=== PATIENT | female | born 1950 | race Caucasian/White ===

== ENCOUNTER → 2016-08-18 | Outpatient (CLI) | payer OTHER ==
[~2016-08-18] MED LIST: ACETAMINOPHEN PO; ALPRAZOLAM PO; ARIXTRA2.5 MG/0.1 SQ; ASPIRIN PO; ATENOLOL PO; ATENOLOL50 MG PO; ATORVASTATIN CA20 MG PO; BENICAR PO; BENICAR20 MG PO; BLACK COHOSH540 MG PO; CAPOZIDE PO; CELEXA20 M1 PO; CLARITIN10 M3 PO; DISCONTINUED MED; FEMHRT 1/5 TABL1 TAB PO; FLOVENT7.9 GM INH; HCTZ PO; HYDROCHLOROTHIA25 MG PO; HYDROGESIC 5/501 CAP PO; KCL PO; LIPITOR20 MG PO; LO-DOSE ASPIRIN81 M1 PO; LORTAB 7.5-5001 TAB PO; METFORMIN HCL500 M4 PO; MONTELUKAST SOD10 MG PO; NAPROSYN500 MG PO; NEURONTIN300 MG PO; NEXIUM PO; OMEPRAZOLE20 M2 PO; OMEPRAZOLE40 M1 PO; PANTOPRAZOLE SO40 MG PO; PATIENT'S PHARMACY; PLAVIX PO; POTASSIUM CHLO10 MEQ PO; PRAVACHOL PO; PRILOSEC20 M1 PO; PRINIVIL10 MG PO; TENORETIC 100 T1 TAB PO; TOLECTIN PO; TOLMETIN SODIU400 MG PO; ULTRAM PO; VIT B-12 PO; VITAMIN E200 UNIT PO; [UNRECOGNIZED DRUG - OTHER]; [UNRECOGNIZED DRUG - OTHER] INJ
--- NOTE | ~2016-08-18 | CT2 ---
[facility] A Service of [facility] RADIOLOGY TEXT RESULTS PATIENT: MJ WORKMAN [facility] 54 UN[facility] #: [id number] AGE: [address]: Ismael Hill MD SEX: F ORDER DR: [id number] [facility]. [place], [place] [address] [id number] O MR#: [id number] Acc #: [id number] NAME: MJ WORKMAN. : 1950 SEX: F STUDY DATE/TIME: 08/18/2016 8:58 UNIT: [facility] ROOM: STUDY DESCRIPTION: CT Abd and Pelv W Cont Attending Physician: Ismael Hill M.D. Referring Physician: Ismael Hill M.D. Ordering Physician: Ismael Hill M.D. Primary Care Physician: Marcel Hilton Jr., M.D. MEDICAL IMAGING REPORT This report is preliminary unless electronic signature is present EXAM CT of abdomen and pelvis. DATE OF EXAM 08/18/2016 INDICATIONS Hypersplenism. Thrombocytopenia. Epigastric abdominal pain and vomiting for 1 week. History of lupus. TECHNIQUE CT of the abdomen and pelvis with IV contrast (100 mL Isovue-370 IV contrast). Coronal and sagittal reconstructions were obtained. NOTE: This CT exam was performed with one or more of the following radiation dose reduction techniques: automatic exposure control, adjustment of mA and/or kV according to patient size, and iterative reconstruction. COMPARISON None available. FINDINGS ABDOMEN: The solid abdominal organs are within normal limits. The spleen is within normal limits in size. Gallbladder is not distended. The bowel is not dilated. There are occasional colonic diverticula. No diverticulitis. The abdominal aorta is normal in caliber. There is some focal atherosclerotic disease at the origins of the celiac artery and the superior mesenteric artery, however, these are not considered to be hemodynamically significant. PELVIS: Uterus and ovaries are within normal limits. No enlarged pelvic or inguinal lymph nodes. Bladder is unremarkable. [facility] A Service of [facility] RADIOLOGY TEXT RESULTS PAT[facility]: [facility]J WORKMAN [id number] [birth year] UNIT #: [id number] AGE: [address]: Ismael Hill MD SEX: F ORDER DR: No acute osseous abnormalities. IMPRESSION No acute findings in the abdomen and pelvis. Dictated by... Juan Francisco Archer M.D. THIS IS AN ELECTRONICALLY VERIFIED REPORT Juan Francisco Archer M.D. at 08/18/2016 9:40 PM GILMER/sheridan TD: 08/18/2016 20:58 JOB #: [id number] MEDICAL IMAGING REPORT COPY
[2016-08-18 09:00] LABS: POC - CREATININE 0.87 mg/dL (0.44-1.03); POC - GFR >60.0 mL/min (>60)
== END | disposition home or self-care (01) ==
LOC: CCAT 08:24
PROVIDERS: Internal Medicine Hematology
DX: D73.1 Hypersplenism (principal); D69.59 Other secondary thrombocytopenia; D75.9 Disease of blood and blood-forming organs, unspecified
CPT/HCPCS: 74177; 82565; Q9967

== ENCOUNTER → 2017-01-05 | Day surgery (SDC) | payer OTHER ==
--- NOTE | ~2017-01-05 | OR ---
Unit #: [id number] #: [id number] Patient: MJ WORKMAN [id number] [place], [place] [address] [id number] O MR#: [id number] NAME: MJ WORKMAN ROOM: Date of Procedure: 01/05/2017 Admission Date: 01/05/2017 Surgeon: Gaurav Craft M.D. : 1950 Attending Physician: Gaurav Craft M.D. Primary Care Physician: Marcel Hilton Jr., M.D. OPERATIVE REPORT PRIMARY CARE PHYSICIAN Marcel Hilton M.D. PREOPERATIVE DIAGNOSIS Colorectal cancer screening. PROCEDURES PERFORMED Colonoscopy and biopsy. POSTOPERATIVE DIAGNOSES 1. Single sessile polyp in the proximal transverse colon. This was diminutive polyp and was removed using cold biopsy forceps. 2. Mild sigmoid and descending colon diverticulosis. 3. Rest of the examination up to cecum was normal. The quality of the prep was good. RECOMMENDATIONS Follow up the results of polyp histology and if an adenoma, consider repeat examination in 5 years. SEDATION USED MAC. DESCRIPTION OF PROCEDURE Following detailed explanation of the potential risks and complications of a colonoscopy, namely perforation, bleeding, and complications related to sedation, the patient was brought to GI lab and laid in the left lateral decubitus position. A digital rectal examination was performed, which was normal. Lubricated tip of the Olympus video colonoscope was inserted through the anus and advanced under direct vision. The scope was advanced past rectosigmoid into descending colon. Scant small diverticula were noted in this area. The scope tip was then navigated all the way up to cecum with visualization of the ileocecal valve and the appendiceal orifice. Preparation was good with good visualization and photodocumentation was obtained. Successive segments of the colonic mucosa were examined upon withdrawal. Single sessile polyp was noted in the proximal transverse colon. This was diminutive polyp and was removed using cold biopsy forceps. No additional polyps were noted. Other than the scant diverticula seen in the left side, no other abnormalities were found. The patient did not have any hemorrhoids at the anal verge. The scope was then withdrawn and the patient returned to the recovery area. She tolerated the procedure without any postprocedure complications. Unit #: [id number] #: [id number] Patient: MJ WORKMAN Dictated by... Jonathan Quinteros/china TD: 01/05/2017 13:46 JOB #: [id number] CC: Marcel Hilton Jr., M.D. OPERATIVE REPORT Page 1 of 1 X Gaurav Craft MD X PROCEDURE OPERATIVE NOTE
== END | disposition home or self-care (01) ==
LOC: COPS 12-16 11:00
DX: Z12.11 Encounter for screening for malignant neoplasm of colon (principal); K63.5 Polyp of colon; K57.30 Diverticulosis of large intestine without perforation or abscess without bleeding; K21.9 Gastro-esophageal reflux disease without esophagitis; E11.9 Type 2 diabetes mellitus without complications; Z88.5 Allergy status to narcotic agent; Z79.84 Long term (current) use of oral hypoglycemic drugs; Z79.899 Other long term (current) drug therapy; Z79.82 Long term (current) use of aspirin; Z79.51 Long term (current) use of inhaled steroids; Z96.653 Presence of artificial knee joint, bilateral; Z98.51 Tubal ligation status; Z98.890 Other specified postprocedural states
CPT/HCPCS: 82947; 88305